=== PATIENT | female | born 1980 | race Hispanic/Latino ===

== ENCOUNTER 2018-09-25 19:44 | Emergency (ER) | payer OTHER ==
[2018-09-25] MEDS ORDERED: FAMOTIDINE 20MG TAB 20 MG TAB ONE (20:01)
[2018-09-25] MEDS ORDERED: PREDNISONE 20 MG TABLET ONE (20:01)
[2018-09-25] MEDS ORDERED: DIPHENHYDRAMINE HCL 25 MG CAPSULE ONE (20:02)
== END 2018-09-25 20:58 | disposition home or self-care (01) ==
LOC: EDH 19:44
DX: T78.49XA Other allergy, initial encounter (principal); Z88.6 Allergy status to analgesic agent; W57.XXXA Bitten or stung by nonvenomous insect and other nonvenomous arthropods, initial encounter
CPT/HCPCS: 99284; Q0163